=== PATIENT | male | born 1940 | race Caucasian/White ===

== ENCOUNTER 2020-02-10 17:56 | Inpatient (IN) | payer MEDICARE ==
[~2020-02-10 17:56] MED LIST: Heparin 10,000 UNITS/ 10 ML VIAL ONE; Iopamidol 370 76% 100 ML VIAL ONE; Iopamidol 370 76% 50 ML VIAL FS ONE; Tenecteplase 50 MG - STEMI KIT ONE
[2020-02-10 18:17] LABS: #Lymphocytes 1.1 thou/uL (1.20-3.40); #Monocytes 0.5 thou/uL (0.11-0.59); #Neutrophils 4.2 thou/uL (1.40-6.50); %Basophils 0.7 % (0.0-1.0); %Eosinophils 0.4 % (0.0-10.0); %Lymphocytes 18.4 % (21.0-51.0); %Monocytes 8.7 % (0.0-10.0); %Neutrophils 71.8 % (42.0-75.0); Hemoglobin 14.8 g/dL (14.0-18.0); Mean Corpuscular HGB CONC 32.3 g/dL (32.0-36.0); Mean Corpuscular Hemoglobin 30.3 pg (27.0-31.0); Mean Corpuscular Volume 93.8 fL (78.0-98.0); Mean Platelet Volume 9.2 fL (7.4-10.4); Platelet Count 181 thou/uL (130-400); RBC Distribution Width 13.9 % (11.5-14.5); White Blood Cell (WBC) Count 5.8 thou/uL (4.8-10.8)
[2020-02-10 18:23] LABS: INR-International Normal Ratio 1.2; PTT 25.3 sec (22.9-36.1); Prothrombin Time 15.9 sec (12.0-14.7)
--- NOTE | 2020-02-10 18:35 | RAD ---
PORTABLE CHEST: 02/10/20 HISTORY: Chest pain. Heart size is enlarged. Pulmonary vessels are engorged. Bilateral effusions, right larger than left w ith atelectatic changes in the right base. IMPRESSION: Cardiomegaly with mild vascular engorgement. Bilateral pleural effusions, right larger than left with right lower lobe atelectasis versus infiltrate. POS: [facility]
[2020-02-10 18:37] LABS: ALT (SGPT) 42 U/L (8-55); AST (SGOT) 36 U/L (5-34); Albumin 3.4 g/dL (3.4-4.8); Alkaline Phosphatase 121 U/L (40-110); Anion Gap 20 mmol/L (10-20); BUN (Urea Nitrogen) 35 mg/dL (8.4-25.7); CK (CPK) 122 U/L (30-200); Calc. Creatinine Clearance 0 mL/min (70-130); Calcium 8.7 mg/dL (7.8-10.44); Carbon Dioxide 13 mmol/L (23-31); Chloride 110 mmol/L (98-107); Estimated GFR-MDRD 42; Globulin 2.9 g/dL (2.4-3.5); Glucose 171 mg/dL (83-110); Lipase 26 U/L (8-78); Potassium 4.8 mmol/L (3.5-5.1); Protein, Total 6.3 g/dL (5.8-8.1); Sodium 138 mmol/L (136-145)
[2020-02-10] MEDS ORDERED: Furosemide 40 MG/4 ML VIAL ONE (18:42)
[2020-02-10] MEDS ORDERED: Heparin 10,000 UNITS/ 10 ML VIAL ONE (18:51)
[2020-02-10] MEDS ORDERED: Nitroglycerin 50 MG/250 ML BOT 250 ML ONE (18:52)
[2020-02-10] MEDS ORDERED: Adenosine 6 MG/2 ML VIAL ONE (18:58)
[2020-02-10] MEDS ORDERED: Verapamil 5 MG/2 ML VIAL ONE (18:58)
[2020-02-10] MEDS ORDERED: Nitroglycerin 100MG/250ML BOT 250 ML ONE (18:58)
[2020-02-10] MEDS ORDERED: Diltiazem 125 MG/25 ML ONE ×3 (19:00→19:01)
[2020-02-10 19:01] LABS: CKMB 4.4 ng/mL (0-6.6)
[2020-02-10] MEDS ORDERED: Digoxin 0.5 MG/2 ML AMP ONE (19:20)
[2020-02-10] MEDS ORDERED: Aggrastat 12.5 MG/250 ML 250 ML ONE (19:22)
[2020-02-10] MEDS ORDERED: Acetaminophen/Codeine 30-300mg Tablet PO PRN (19:36)
[2020-02-10] MEDS ORDERED: Milk Of Magnesia 30 ML UDCUP PO PRN (19:36)
[2020-02-10] MEDS ORDERED: traMADol HCl 50 MG TAB PO PRN (19:36)
[2020-02-10] MEDS ORDERED: cloNIDine 0.1 MG TAB PO PRN (21:29)
[2020-02-10] MEDS ORDERED: Carvedilol 6.25 MG TAB PO SCH (21:30)
[2020-02-10] MEDS: Atorvastatin Calcium 40 MG TAB PO SCH (21:47)
[2020-02-10] MEDS: Sodium Chloride 0.9% 1,000 ML IV SCH (21:47)
[2020-02-10 22:25] VITALS: BMI 39.2
[2020-02-10] MEDS ORDERED: Temazepam 15 MG CAP PO PRN (22:39)
[2020-02-10] MEDS ORDERED: Labetalol HCl 100 MG/20 ML VIAL SLOW IVP PRN (22:40)
[2020-02-10] MEDS ORDERED: Diltiazem HCl 125 MG, Admixture Fee 1 EACH in Sodium Chloride 0.9% 100 ML IVPB SCH (22:45)
[2020-02-10] MEDS ORDERED: Labetalol HCl 100 MG/20 ML VIAL SLOW IVP SCH (22:45)
[2020-02-10] MEDS ORDERED: Aggrastat 12.5 MG/250 ML 250 ML IVPB SCH (22:45)
[2020-02-10] MEDS: Nitroglycerin 50 MG/250 ML BOT 250 ML IVPB SCH (23:20)
[2020-02-11] MEDS: Sodium Chloride 0.9% 1,000 ML IV SCH (01:04)
[2020-02-11] MEDS: Nitroglycerin 50 MG/250 ML BOT 250 ML IVPB SCH (02:23)
[2020-02-11 03:38] LABS: #Lymphocytes 0.7 thou/uL (1.20-3.40); #Neutrophils 7.7 thou/uL (1.40-6.50); %Basophils 0.2 % (0.0-1.0); %Eosinophils 0.2 % (0.0-10.0); %Lymphocytes 7.8 % (21.0-51.0); %Monocytes 10.6 % (0.0-10.0); %Neutrophils 81.2 % (42.0-75.0); Hemoglobin 12.8 g/dL (14.0-18.0); Mean Corpuscular HGB CONC 32.7 g/dL (32.0-36.0); Mean Corpuscular Hemoglobin 30.5 pg (27.0-31.0); Mean Corpuscular Volume 93.4 fL (78.0-98.0); Mean Platelet Volume 9.7 fL (7.4-10.4); Platelet Count 150 thou/uL (130-400); RBC Distribution Width 13.7 % (11.5-14.5); Red Blood Cell (RBC) Count 4.18 mill/uL (4.70-6.10); White Blood Cell (WBC) Count 9.4 thou/uL (4.8-10.8)
[2020-02-11 03:42] LABS: ALT (SGPT) 54 U/L (8-55); AST (SGOT) 88 U/L (5-34); Albumin 2.9 g/dL (3.4-4.8); Alkaline Phosphatase 97 U/L (40-110); Anion Gap 16 mmol/L (10-20); BUN (Urea Nitrogen) 34 mg/dL (8.4-25.7); Bilirubin, Total 0.8 mg/dL (0.2-1.2); Calc. Creatinine Clearance 72 mL/min (70-130); Calcium 8.2 mg/dL (7.8-10.44); Carbon Dioxide 16 mmol/L (23-31); Chloride 110 mmol/L (98-107); Estimated GFR-MDRD 43; Globulin 2.7 g/dL (2.4-3.5); Glucose 128 mg/dL (83-110); Potassium 4.5 mmol/L (3.5-5.1); Protein, Total 5.6 g/dL (5.8-8.1); Sodium 137 mmol/L (136-145)
[2020-02-11] MEDS ORDERED: Furosemide 40 MG/4 ML VIAL IVP SCH (07:15)
--- NOTE | 2020-02-11 08:41 | CON ---
DATE OF CONSULTATION: 02/10/2020 CHIEF COMPLAINT: Acute DE. HISTORY OF PRESENT ILLNESS: Mr. Jacques is a 79-year-old gentleman, who recently had a lightheaded dizzy episode yesterday. He states he became presyncopal. He did develop chest pain, felt to be mild. EMS was summoned. He was found to have ST-segment elevation noted anteriorly. PAST MEDICAL HISTORY: None. MEDICATIONS: None. ALLERGIES: NONE. REVIEW OF SYSTEMS: A 10-point review of systems is reviewed as above, including significant lower extremity edema over the last several weeks. PHYSICAL EXAMINATION: VITAL SIGNS: Blood pressure 88/60, pulse 38, respirations 20. General: He does appear ashen. Head, Eyes, Ears, Nose and Throat: Sclerae without icterus. Mouth: Moist mucous membranes, normal palate. Neck: No jugular venous distention. Carotid upstroke is brisk. No bruits bilaterally. Lungs: Clear to auscultation. Heart: Irregularly regular and bradycardic. Abdomen: Soft, nontender, nondistended. Extremities: No edema. PERTINENT LABORATORY DATA: Pending. EKG as above. IMPRESSION: Acute myocardial infarction. RECOMMENDATIONS: Mr. Jacques does have ST-segment elevation noted anteriorly, which usually does not correspond with bradydysrhythmias. This would be more likely right coronary artery. Given his current presentation, I would recommend urgent coronary angiography with possible PCI. I discussed procedure in full detail with Mr. Jacques. Risks include, but not limited to the following: , stroke, DE, need for emergency surgery, loss of limb, bleeding, and infection, as well as a reaction to the dye causing kidney failure and needing long-term dialysis. I also discussed the risks of PCI to include all of the above including coronary dissection and perforation in addition to acute stent thrombosis and restenosis. All questions about the procedure were answered. Given the above, the patient agreed to proceed with coronary angiography and possible PCI. All questions were answered. Also discussed drug coated versus nondrug coated stent placement. There were no contraindications to proceed if needed. Further recommendations will be pending the above. We will also recommend likely temporary pacemaker given bradycardia and hypotension. Further recommendations will be pending the above. Job ID: [id number]
[2020-02-11] MEDS: Lisinopril 2.5 MG TAB PO SCH (08:57)
[2020-02-11] MEDS: Carvedilol 6.25 MG TAB PO SCH ×3 (08:58→21:54)
[2020-02-11] MEDS: Aspirin Chewable 81 MG TAB PO SCH (08:58)
[2020-02-11] MEDS: Clopidogrel Bisulfate 75 MG TAB PO SCH (08:58)
[2020-02-11] MEDS ORDERED: Carvedilol 6.25 MG TAB PO SCH (09:00)
--- NOTE | 2020-02-11 09:35 | PRG ---
DATE OF SERVICE: 02/11/2020 SUBJECTIVE: Mr. Jacques is doing much better. Blood pressure and heart rate are more stable. I was able to wean off his IV nitroglycerin overnight. He was on up to . His blood pressure is more stable. He also was able to decrease his Cardizem from . He has no current symptoms and no longer looks ashen. OBJECTIVE: VITAL SIGNS: Blood pressure 137/70, pulse 80, and respirations 20. LUNGS: Clear to auscultation. HEART: Irregularly regular. ABDOMEN: Soft, nontender, nondistended. Large ventral hernia present. EXTREMITIES: 3+ pitting edema. IMPRESSION: 1. Acute myocardial infarction. 2. Atrial fibrillation. 3. Obesity. 4. Ventral hernia. RECOMMENDATIONS: 1. Remove the temporary pacemaker. 2. Increase Coreg to 6.25 one p.o. t.i.d. 3. Continue to titrate down Cardizem. 4. Check echo. 5. Continue aspirin and Plavix in addition to beta-yudith therapy. 6. Continue low-dose RAINA inhibitor therapy. Job ID: [id number]
[2020-02-11 09:40] LABS: CKMB 122.6 ng/mL (0-6.6); Troponin I 12.896 ng/mL (< 0.028)
[2020-02-11 17:22] LABS: SARS-CoV-2 MS2 Positive; SARS-CoV-2 N Gene Negative; SARS-CoV-2 S Gene Negative; SARS-CoV-2 by NAA Not Detected (NotDetected); SARS-CoV-2 orf1ab Negative
[2020-02-11] MEDS ORDERED: FLU VACC QS2020-21(65YR UP)/PF 240 MCG/0.7 ML SYRINGE IM ONE (21:00)
[2020-02-11] MEDS: Atorvastatin Calcium 40 MG TAB PO SCH (21:55)
[2020-02-12] MEDS: Lisinopril 2.5 MG TAB PO SCH (10:19)
[2020-02-12] MEDS: Aspirin Chewable 81 MG TAB PO SCH (10:20)
[2020-02-12] MEDS: Clopidogrel Bisulfate 75 MG TAB PO SCH (10:20)
[2020-02-12] MEDS: Apixaban 5 MG TAB PO SCH ×2 (10:20→21:03)
[2020-02-12] MEDS: Carvedilol 6.25 MG TAB PO SCH ×3 (10:20→21:02)
--- NOTE | 2020-02-12 11:16 | EKG ---
Test Reason : Blood Pressure : / mmHG Vent. Rate : 041 BPM Atrial Rate : 300 BPM P-R Int : 000 ms QRS Dur : 114 ms QT Int : 552 ms P-R-T Axes : 000 081 223 degrees QTc Int : 455 ms Atrial fibrillation with slow ventricular response Abnormal ECG ST elevation-RI Confirmed by CHANDA MORENO ([id number]), digital editor DIOGO WICK ([id number]) on 02/12/2020 11:16:39 AM Referred By: Confirmed By:CHANDA MORENO
[2020-02-12] MEDS ORDERED: Furosemide 40 MG/4 ML VIAL SLOW IVP SCH ×2 (11:45→21:30)
[2020-02-12] MEDS: Atorvastatin Calcium 40 MG TAB PO SCH (21:02)
[2020-02-12] MEDS ORDERED: Nitroglycerin 2% Ointment 1 INCH/1 GM Packet TOP SCH (21:30)
[2020-02-13] MEDS: Lisinopril 2.5 MG TAB PO SCH (07:49)
[2020-02-13] MEDS: Nitroglycerin 2% Ointment 1 INCH/1 GM Packet TOP SCH ×2 (07:51→20:21)
[2020-02-13] MEDS: Aspirin Chewable 81 MG TAB PO SCH (07:51)
[2020-02-13] MEDS: Apixaban 5 MG TAB PO SCH ×2 (07:52→20:20)
[2020-02-13] MEDS: Carvedilol 6.25 MG TAB PO SCH ×2 (07:52→16:22)
[2020-02-13] MEDS: Clopidogrel Bisulfate 75 MG TAB PO SCH (07:52)
[2020-02-13] MEDS ORDERED: Enoxaparin Sodium 80 MG/0.8 ML SYRINGE SC SCH (09:00)
[2020-02-13 10:33] LABS: #Lymphocytes 0.9 thou/uL (1.20-3.40); #Monocytes 0.9 thou/uL (0.11-0.59); #Neutrophils 11.1 thou/uL (1.40-6.50); %Basophils 0.1 % (0.0-1.0); %Eosinophils 0.3 % (0.0-10.0); %Lymphocytes 6.7 % (21.0-51.0); %Monocytes 7.3 % (0.0-10.0); %Neutrophils 85.6 % (42.0-75.0); Hemoglobin 14.2 g/dL (14.0-18.0); Mean Corpuscular Hemoglobin 30.7 pg (27.0-31.0); Mean Corpuscular Volume 95.8 fL (78.0-98.0); Mean Platelet Volume 9.3 fL (7.4-10.4); Platelet Count 133 thou/uL (130-400); RBC Distribution Width 13.8 % (11.5-14.5); Red Blood Cell (RBC) Count 4.62 mill/uL (4.70-6.10); White Blood Cell (WBC) Count 12.9 thou/uL (4.8-10.8)
[2020-02-13 10:50] LABS: Anion Gap 15 mmol/L (10-20); BUN (Urea Nitrogen) 34 mg/dL (8.4-25.7); Calc. Creatinine Clearance 80 mL/min (70-130); Calcium 8.5 mg/dL (7.8-10.44); Carbon Dioxide 21 mmol/L (23-31); Chloride 106 mmol/L (98-107); Estimated GFR-MDRD 50; Glucose 130 mg/dL (83-110); Potassium 4.6 mmol/L (3.5-5.1); Sodium 137 mmol/L (136-145)
[2020-02-13] MEDS: Atorvastatin Calcium 40 MG TAB PO SCH (20:20)
[2020-02-14] MEDS ORDERED: Furosemide 20 MG/2 ML VIAL SLOW IVP SCH (09:00)
[2020-02-14] MEDS: Aspirin Chewable 81 MG TAB PO SCH (09:52)
[2020-02-14] MEDS: Nitroglycerin 2% Ointment 1 INCH/1 GM Packet TOP SCH ×2 (09:52→21:42)
[2020-02-14] MEDS: Clopidogrel Bisulfate 75 MG TAB PO SCH (09:53)
[2020-02-14] MEDS: Lisinopril 2.5 MG TAB PO SCH (09:53)
[2020-02-14] MEDS: Apixaban 5 MG TAB PO SCH ×2 (09:53→21:42)
[2020-02-14] MEDS: Carvedilol 6.25 MG TAB PO SCH ×2 (09:53→17:30)
[2020-02-14] MEDS: Atorvastatin Calcium 40 MG TAB PO SCH (21:42)
[2020-02-15] MEDS: Potassium Chloride 8 MEQ TAB PO SCH (08:30)
[2020-02-15] MEDS: Clopidogrel Bisulfate 75 MG TAB PO SCH (08:30)
[2020-02-15] MEDS: Furosemide 40 MG TAB PO SCH (08:31)
[2020-02-15] MEDS: Carvedilol 6.25 MG TAB PO SCH ×2 (08:31→16:37)
[2020-02-15] MEDS: Apixaban 5 MG TAB PO SCH ×2 (08:32→20:09)
[2020-02-15] MEDS: Lisinopril 2.5 MG TAB PO SCH (08:32)
[2020-02-15] MEDS: Aspirin Chewable 81 MG TAB PO SCH (08:32)
[2020-02-15] MEDS ORDERED: Furosemide 40 MG/4 ML VIAL IVP SCH (09:30)
--- NOTE | 2020-02-15 10:40 | PDOC.FMACP ---
Advance Care Planning - Problem (1) STEMI (ST elevation myocardial infarction) Status: Acute (2) Palliative care encounter Status: Acute Code(s): Z51.5 - ENCOUNTER FOR PALLIATIVE CARE - Note Participants: patient, palliative care Summary: Palliative Care discussed Advanced Care Planning, opportunity to decline. The diagnosis, prognosis and goals of care were discussed. Appropriate forms and documentation to accomplish the goals of care were discussed. All questions were answered. Mr Jacques elected to complete a MPOA, information provided in relation to Directive to Physician. Confirmed he wishes to remain with full resuscitation measures. The Palliative Care Team will be engaged to assist with completion of any outstanding forms that are needed. Please also refer to Palliative Care team notes in note section. Palliative Care will sign off as Directives addressed, if we can be of assistance in the future for Goal of Care, complex decision making, disease education or symptom management please re consult our team. Time Spent (mins): 15
[2020-02-15] MEDS: Atorvastatin Calcium 40 MG TAB PO SCH (20:08)
--- NOTE | 2020-02-16 08:02 | PRG ---
DATE OF SERVICE: 02/15/2020 SUBJECTIVE: Mr. Jacques is doing well, no current complaints. His mobility has been limited. He states he has had some ambulation, but not much. OBJECTIVE: VITAL SIGNS: Blood pressure 141/95, pulse 101, and temperature 98.4. LUNGS: Clear to auscultation. HEART: Irregularly regular. ABDOMEN: Soft, nontender, and nondistended. EXTREMITIES: No edema. PERTINENT LABORATORY DATA: Hemoglobin 14.2, hematocrit 44.3. ASSESSMENT AND PLAN: 1. Acute myocardial infarction. 2. Atrial fibrillation, newly diagnosed. 3. Hyperglycemia. RECOMMENDATIONS: 1. Switch IV Lasix to p.o. Lasix. 2. Continue beta-yudith therapy and RAINA inhibitor therapy. 3. Continue aspirin in addition to isosorbide. 4. Discontinue lisinopril. 5. Check Hb A1c and add Jardiance if HbA1c elevated. 6. Transfer to rehab when bed available. Job ID: [id number]
[2020-02-16 08:36] LABS: Hemoglobin A1c 5.8 % (4.0-6.0)
[2020-02-16] MEDS: Aspirin Chewable 81 MG TAB PO SCH (09:31)
[2020-02-16] MEDS: Carvedilol 6.25 MG TAB PO SCH ×2 (09:32→17:23)
[2020-02-16] MEDS: Apixaban 5 MG TAB PO SCH (09:33)
[2020-02-16] MEDS: Clopidogrel Bisulfate 75 MG TAB PO SCH (09:33)
[2020-02-16] MEDS: Lisinopril 2.5 MG TAB PO SCH (09:33)
[2020-02-16] MEDS: Potassium Chloride 8 MEQ TAB PO SCH (09:34)
[2020-02-16] MEDS: Furosemide 40 MG TAB PO SCH (09:34)
[2020-02-16 12:55] LABS: Anion Gap 12 mmol/L (10-20); BUN (Urea Nitrogen) 44 mg/dL (8.4-25.7); Calc. Creatinine Clearance 81 mL/min (70-130); Calcium 8.5 mg/dL (7.8-10.44); Carbon Dioxide 24 mmol/L (23-31); Chloride 104 mmol/L (98-107); Estimated GFR-MDRD 51; Glucose 132 mg/dL (83-110); Potassium 4.5 mmol/L (3.5-5.1); Sodium 135 mmol/L (136-145)
[2020-02-16 16:33] VITALS: BP 125/71; TEMP 97.7
[2020-02-17] MEDS ORDERED: Losartan 25 MG TAB PO SCH (09:00)
--- NOTE | 2020-02-18 07:18 | PQF ---
CLINICAL DOCUMENTATION CLARIFICATION FORM: Dear : Stalin Parish MD Date / Time: 02/18/2020 Please exercise your independent, professional judgment in responding to the clarification form. Clinical indicators are provided on the bottom of this form for your review Please check appropriate box(es): to clarify the acquity of systolic heart failure SYSTOLIC HEART FAILURE: [ ] Acute [ ] Acute on Chronic [ ] Chronic [ ] Other diagnosis (Please specify if any) [ ] Unable to determine In addition, please specify: Present on Admission (POA): [ ] Yes [ ] No [ ] Unable to determine Physician Signature: Date/Time: For continuity of documentation, please document condition throughout progress notes and discharge summary. Thank You. To be completed by CDI/Coding staff for physician review: Present Clinical Indicators - Signs / Symptoms / Labs Results and Location in Medical Record [ x ] Ejection Fraction = 35% Progress notes on 02/12 [ x] Systolic HF Progress notes on 02/12 [ ] Peripheral edema [ ] Elevated BNP [ x ] Appears volume overload Progress notes on 02/11 [ ] Orthopnea / SOB / dyspnea [ ] Pleural effusion / pulmonary edema [ ] CXR results [ ] Arrhythmia--tachycardia Present Risk Factors Results and Location in Medical Record [ ] History of CAD/ischemic heart disease [ ] CKD Hypertension [x] Acute myocardial infarction Consult on 02/10 Present Treatments Results and Location in Medical Record [ x ] Add additional dose IVP lasiz last pm for exp wheezing Progress notes on 02/12 [x ] Lasix 40 mg Medication on 02/09 [x ] Lasix 40 mg IV Medication on 02/10 [ ] Oxygen [ ] AICD [ ] Cardiology Consult CDS/Plastic Panel Installer Signature: AAS Phone #: Date/Time: 02/18/2020 This is a permanent part of the Medical Record [facility]
--- NOTE | 2020-02-18 13:18 | EKG ---
Test Reason : Blood Pressure : / mmHG Vent. Rate : 081 BPM Atrial Rate : 100 BPM P-R Int : 000 ms QRS Dur : 106 ms QT Int : 388 ms P-R-T Axes : 000 050 235 degrees QTc Int : 450 ms Atrial fibrillation Abnormal ECG When compared with ECG of 10-FEB-2020 18:00, (Unconfirmed) Vent. rate has increased BY [address] no longer depressed in Lateral leads Confirmed by DR. Gabriella NUNEZ ([id number]) on 02/18/2020 1:17:52 PM Referred By: ELKIN Confirmed By:DR. Gabriella NUNEZ
== END 2020-02-16 18:20 | DRG 247 ==
LOC: ERS 17:56 → CCL 18:21 → CCU 19:36 → 2NO 02-11 15:08
PROVIDERS: ADMIT Internal Medicine Cardiovascular Disease; ATTEND Internal Medicine Cardiovascular Disease
PROC: B2111ZZ Fluoroscopy of Multiple Coronary Arteries using Low Osmolar Contrast (ICD-10-PCS; principal; 2020-02-10)
PROC: 027035Z Dilation of Coronary Artery, One Artery with Two Drug-eluting Intraluminal Devices, Percutaneous Approach (ICD-10-PCS; 2020-02-10)
PROC: 02C03ZZ Extirpation of Matter from Coronary Artery, One Artery, Percutaneous Approach (ICD-10-PCS; 2020-02-10)
PROC: B2151ZZ Fluoroscopy of Left Heart using Low Osmolar Contrast (ICD-10-PCS; 2020-02-10)
PROC: 4A023N7 Measurement of Cardiac Sampling and Pressure, Left Heart, Percutaneous Approach (ICD-10-PCS; 2020-02-10)
DX: I21.09 ST elevation (STEMI) myocardial infarction involving other coronary artery of anterior wall (principal); I50.22 Chronic systolic (congestive) heart failure; I48.91 Unspecified atrial fibrillation; Z51.5 Encounter for palliative care; Z68.38 Body mass index [BMI] 38.0-38.9, adult; E66.9 Obesity, unspecified; K43.9 Ventral hernia without obstruction or gangrene; R73.9 Hyperglycemia, unspecified; R00.1 Bradycardia, unspecified; Z20.828 Contact with and (suspected) exposure to other viral communicable diseases
CPT/HCPCS: 33210; 36415; 71045; 76942; 80048; 80053; 82550; 82553; 83036; 83690; 84484; 85025; 85347; 85610; 85730; 86850; 86900; 86901; 87635; 90471; 90662; 90732; 92941; 92977; 93005; 93010; 93306; 93458; 93798; 96374; 97139; C1874; C9606; G0008; G0009; J0153; J1160; J1644; J1940; J3101; J3246; J3490; Q9967; U0003

== ENCOUNTER 2020-04-04 20:01 | Inpatient (IN) | payer MEDICARE ==
[2020-04-04 20:27] LABS: #Eosinphils 0.1 thou/uL (0.0-0.7); #Lymphocytes 1.4 thou/uL (1.20-3.40); #Monocytes 0.4 thou/uL (0.11-0.59); #Neutrophils 5.3 thou/uL (1.40-6.50); %Basophils 0.3 % (0.0-1.0); %Eosinophils 0.9 % (0.0-10.0); %Lymphocytes 19.8 % (21.0-51.0); %Monocytes 4.9 % (0.0-10.0); %Neutrophils 74.1 % (42.0-75.0); Hemoglobin 7.8 g/dL (14.0-18.0); Mean Corpuscular HGB CONC 32.9 g/dL (32.0-36.0); Mean Corpuscular Hemoglobin 31.7 pg (27.0-31.0); Mean Corpuscular Volume 96.2 fL (78.0-98.0); Mean Platelet Volume 9.1 fL (7.4-10.4); Platelet Count 137 thou/uL (130-400); RBC Distribution Width 16.2 % (11.5-14.5); Red Blood Cell (RBC) Count 2.47 mill/uL (4.70-6.10); White Blood Cell (WBC) Count 7.1 thou/uL (4.8-10.8)
[2020-04-04 20:41] LABS: INR-International Normal Ratio 1.4; PTT 40.6 sec (22.9-36.1); Prothrombin Time 17.1 sec (12.0-14.7)
[2020-04-04] MEDS ORDERED: Ondansetron ODT 4 MG TAB PO PRN (20:42)
[2020-04-04] MEDS ORDERED: Dextrose 50% Abboject 50 ML SYRINGE SLOW IVP PRN (20:42)
[2020-04-04] MEDS ORDERED: Dextrose 5% in Water 1,000 ML IV PRN (20:42)
[2020-04-04 20:44] LABS: ALT (SGPT) 25 U/L (8-55); AST (SGOT) 22 U/L (5-34); Albumin 2.3 g/dL (3.4-4.8); Alkaline Phosphatase 171 U/L (40-110); Anion Gap 15 mmol/L (10-20); BUN (Urea Nitrogen) 52 mg/dL (8.4-25.7); Calc. Creatinine Clearance 0 mL/min (70-130); Calcium 7.7 mg/dL (7.8-10.44); Carbon Dioxide 26 mmol/L (23-31); Chloride 98 mmol/L (98-107); Glucose 164 mg/dL (83-110); Potassium 3.3 mmol/L (3.5-5.1); Protein, Total 5.3 g/dL (5.8-8.1); Sodium 136 mmol/L (136-145)
[2020-04-04] MEDS ORDERED: traMADol HCl 50 MG TAB PO PRN (20:48)
--- NOTE | 2020-04-04 20:50 | RAD ---
XR Chest 1 View Portable History: Fall Comparison: Radiograph February 10, 2020 Findings: Moderate layering right pleural effusion. Right middle lobe airspace opacity. Pulmonary art eries are enlarged. Heart size is enlarged. No pneumothorax. No acute displaced rib fracture. Impression: 1. Slight interval size decrease right layering pleural effusion. 2. Markedly cardiomegaly and pulmonary hypertension. 3. Right middle lobe and right lower lobe airspace opacity may reflect layering pleural fluid or cons olidation.
--- NOTE | 2020-04-04 20:55 | CT ---
CT Cervical Spine WO Con History: Trauma Comparison: None. Findings: The odontoid process is intact. The occipital condyles are intact. No acute traumatic facet joint widening. No acute fracture or malalignment of the cervical spine. Debris within the nasal cavity and nasopharynx. Gas within the perivertebral vessels and internal jugular veins. High-grade c arotid artery calcifications. No transverse process fracture. No spinous process fracture. Impression: No acute fracture or malalignment of the cervical spine. Dr. Lopez notified of findings via telephone at 8:50 PM
--- NOTE | 2020-04-04 20:57 | CT ---
CT OF BRAIN PERFORMED WITHOUT CONTRAST ENHANCEMENT: 04/04/20 HISTORY: Fall with head injury. Currently on blood thinners. There is some generalized ventricular and sulcal prominence. There is no signs of intracerebral hemor rhage or extra-axial fluid collections. Frontal scalp hematoma is present. The mastoid air cells are clear. Air fluid level of high attenuation is seen in the left maxillary sinus. Findings would be tyra picious for a floor fracture. Subtle irregularity also seen to the lateral wall of the left maxillary sinus. Zygomatic arch appears intact. IMPRESSION: 1. No acute intracranial abnormalities. 2. Blood within the left maxillary sinus. The possibility of an occult orbital floor fracture sh ould be considered. CT of facial bones would be helpful in further assessment. Slight irregularity to the lateral wall of the left maxillary sinus, suspicious for a subtle fracture. 3. Findings telephoned to Dr. Lopez at 2047 hours. POS: [facility] [place]
[2020-04-04] MEDS ORDERED: Tranexamic Acid 1,000 MG/10 ML VIAL ONE (20:59)
--- NOTE | 2020-04-04 21:03 | CT ---
CT OF FACIAL BONES PERFORMED WITHOUT CONTRAST ENHANCEMENT: 04/04/20 HISTORY: Facial trauma Slight asymmetry to the left side of the nasal bone which may represent a small fracture. Appears to be some soft tissue swelling in this region. There is mucosal change within the maxillary sinuses and an air fluid level seen within the left maxillary sinus which is of higher attenuation suggesting bl ood. Subtle irregularity to the posterior aspect of the lateral wall of the left maxillary sinus may represent a subtle nondisplaced fracture. Accessory maxillary ostia present but there is some irregul arity to the medial wall of the left maxillary sinus which would suggest a fracture in this region. T here is no evidence of any orbital floor fracture. Pterygoid processes appear intact. The mandible is intact and condyles are in normal position. There is some air in the soft tissues near the left paro tid. This may just represent some air within a venous structure. I do not appreciate a definite lacer ation in this area. IMPRESSION: 1. Subtle nondisplaced fracture of the left side of the nasal bone anteriorly. Also subtle irreg ularity to the lateral and medial valladares of the left maxillary sinus suspicious for nondisplaced fract ures. No orbital floor fracture seen. There is blood within the left maxillary sinus. 2. These findings were telephoned to Dr. Lopez at 2053 hours. POS: [facility]
[2020-04-04] MEDS ORDERED: Lidocaine 1% (PF) 30 ML VIAL ONE (21:18)
[2020-04-04] MEDS ORDERED: Calcium Chloride 1 GM/10 ML Abboject SYRINGE ONE (21:55)
[2020-04-04] MEDS ORDERED: Ampicillin/Sulbactam 3 GM in Sodium Chloride 0.9% 100 ML IVPB SCH (22:45)
[2020-04-04] MEDS ORDERED: Electrolyte Replacement Protocol 1 EACH FS SCH (23:00)
--- NOTE | 2020-04-04 23:13 | PDOC.BPN ---
- Brief Progress Note Encounter Date: 04/04/20 Encounter Time: 23:09 Transient responding: BP is labile. Bleeding has been controlled, mental status and skin appear improved. GCS remains 15. No pain. ON 4th unit of PRBC, 2nd plasma. BP now 105 systolic but will dip to 80's at times. HR 90's afib. Will add: -fibrinogen -repeat h/h -mag and phos level -check troponin and CK reflex -obtain UA -Calcium has been given -Hydrocortisone given Doubt other injuries, but will get CT chest/abd/pelvis for further eval. Soft abd, CXR reviewed (will better define the RLL opacity too). Non-contrast 2/2 RABIA UOP is appropriate. On warmer and changed blood to warmed as temp was 94.7 prior to starting 4th unit. Will change to critical care unit I still think that with our external bleeding stopped we should catch up. Verbally consented for central line if needed. Consult OMFS (routine in AM) d/w Dr. Antonio. d/w ER staff/
[2020-04-04] MEDS ORDERED: Hydrocortisone Sod Succ/PF 250 mg/2 ml Vial SLOW IVP SCH (23:15)
[2020-04-04 23:22] LABS: Lactic Acid 2.9 mmol/L (0.5-2.2)
[2020-04-04 23:23] LABS: Hemoglobin 8.3 g/dL (14.0-18.0)
[2020-04-04] MEDS ORDERED: Hydrocortisone Sod Succ/PF 100 mg/2 ml Vial IVP SCH (23:30)
[2020-04-04 23:33] LABS: Phosphorus 3.4 mg/dL (2.3-4.7)
[2020-04-04 23:59] LABS: CKMB 4.7 ng/mL (0-6.6)
--- NOTE | 2020-04-05 00:05 | OP ---
DATE OF PROCEDURE: 04/04/2020 PROCEDURES PERFORMED: 1. Wound/complex laceration repair x2 of the face and vermilion border. 2. Rhino Rocket and epistaxis control. 3. Infraorbital Nerve block of the Left. INDICATION: 1. Hemorrhagic shock. 2. Facial lacerations x2. 3. Epistaxis with open fracture. Consent was verbal. DESCRIPTION OF PROCEDURE: The patient was prepped and draped in usual fashion. Hand hygiene was completed, did an infraorbital nerve block of the right side with good anesthesia 1% lidocaine a total of 1.5 mL instilled with good anesthesia. No complications. The area was thoroughly irrigated with jet irrigation. The patient has a stellate type laceration that does cross the vermilion border and then is ivyjwye-vab-elwrvld into the lip with a large defect. He also has a second laceration that is just superior to this above the right. That is a jagged laceration with active bleeding prior to TXA topically. The first suture was 5- 0 Vicryl subcuticular to approximate the soft tissues of the lip, one suture was placed, and to approximate the vermilion border, I placed one 6-0 Prolene suture across this and it was difficult to get a great approximation across the vermilion border given the multiple stellate lacerations about this cut, a total of I believe 5 simple interrupted sutures across this laceration, 3 being on the external portion and 2 loosely covering the internal portion, so the patient would not feel a defect with his tongue with good wound margins. Next, my attention turned to the more superior laceration, did have a large skin defect, again thoroughly irrigated. No foreign bodies were noted. This was closed with an additional five simple interrupted 6-0 Prolene sutures with good margins and good bleeding control. Foreign body 0. Bleeding total during the procedure, less than 5 mL. Good wound margins. Complications, none. Tolerated the procedure well. PROCEDURE #2: Epistaxis control. This was completed with an anterior packed Rhino Rocket. The Rhino Rocket was identify. Consent was verbal. It was soaked in 5 mL of TXA. It was then placed into the left naris. The balloon was inflated until it was seated. This was secured in place and bleeding was controlled. Immediate complications none. The patient tolerated the procedure well. Job ID: [id number] [facility]
--- NOTE | 2020-04-05 00:13 | CT ---
CT Chest Abd Pelvis WO Con History: Fall Comparison: None. Findings: Large right layering pleural effusion not measuring hemorrhagic high density. Small to mode rate left layering pleural effusion. Large hematoma in the potential space between the serratus musculature and the latissimus muscle on t he left measuring 5.6 cm in AP dimension with a transverse dimension of 3.5 cm in a craniocaudal dimension of approximately 13 cm. Mild compressive atelectasis right middle lobe and right lower lobe. No pneumothorax. Small volume pe ricardial fluid. Aortoiliac contour is nonaneurysmal. Moderate diverticular disease sigmoid colon. No active inflammat ion. Large small bowel containing infraumbilical hernia with a large 6.2 cm neck. Small superficial soft tissue contusion along the anterior left lower quadrant adjacent to the iliac crests. Small right anterior thigh superficial soft tissue contusion. Likely third spacing of fluid versus less likely contusion along the right mini abdominal wall outside the field of view. No hepatic or splenic laceration. No renal laceration or hemorrhage. No large volume peritoneal fluid . No retroperitoneal hemorrhage. Thoracic spine diffuse idiopathic skeletal hyperostosis. No acute thoracic spine fracture. No sternum or manubrium fracture. No acute displaced right rib fracture. No acute displaced left rib fracture. No acute pelvic fracture. Impression: 1. Moderate-large hematoma in the potential space between the left serratus and latissimus muscles me asuring 5.6 x 3.5 x 13 cm. 2. Nonhemorrhagic large right layering pleural effusion with small left layering nonhemorrhagic pleur al effusion. 3. No free intraperitoneal hemorrhage nor significant retroperitoneal hemorrhage. 4. Large fat and small bowel containing infraumbilical hernia. 5. Superficial soft tissue contusions along the left lower lateral abdominal wall at the iliac crests and possibly along the right flank although out of field of view. 6. Moderate bilateral paraspinal muscle atrophy. 7. Small soft tissue contusion of the right anterior chest wall with a large volume hematoma or under lying rib fracture.
[2020-04-05] MEDS ORDERED: Magnesium 2 GM/50 ML 2 GM in Premix Bag 1 BAG IVPB SCH (00:30)
[2020-04-05 00:53] LABS: SARS-CoV-2 NAA Rapid Test Not Detected (NotDetected)
[2020-04-05] MEDS ORDERED: Potassium Chloride 40 MEQ in Sodium Chloride 0.9% 250 ML 250 ML IVPB SCH (01:00)
[2020-04-05 02:34] LABS: Bacteria/HPF 3+ HPF (None Seen); Bilirubin Negative (Negative); Blood, Urine 2+ (Negative); Clarity Extra Turbid (Clear); Glucose, Urine (Dipstick) Normal (Negative); Ketone, Urine Negative (Negative); Leukocyte 500 Leu/uL (Negative); Nitrite Negative (Negative); Protein, Urine (Dipstick) 20 mg/dL (Neg-Trace); RBC/HPF 21-50 HPF (0-3); Specific Gravity, Urine 1.012 (1.002-1.036); Squamous Epithelial None Seen HPF (0-3); Urobilinogen Normal mg/dL (Less than 2); WBC/HPF Greater than 50 HPF (0-3); pH, Urine 5.5 (5.0-9.0)
[2020-04-05] MEDS: Acetaminophen 325 MG TAB PO SCH ×5 (02:47→23:15)
[2020-04-05] MEDS: traMADol HCl 50 MG TAB PO SCH ×5 (02:52→23:20)
[2020-04-05] MEDS ORDERED: Pharmacy to Dose UNASYN IVPB PRN (03:53)
--- NOTE | 2020-04-05 05:15 | HP ---
CRITICAL CARE/TRAUMA ATTENDING: Dr. Antonio. PCP: Dr. Larson in [place]. EXCHANGE TELLER: Dr. Parish. REASON FOR CONSULT/ADMISSION: Level 1 trauma activation fall with hypotension. HISTORY OF PRESENT ILLNESS: Mr. Jacques is an 80-year-old male with a recent past medical history significant for STEMI with RCA stent placed in January [address] Parish here after syncope and dizziness. He tolerated the procedure well. He was placed on Plavix and aspirin as well as Eliquis. He was noted to have persistent anemia. He was actually taken off the Eliquis 2 weeks ago. The patient also had an echo post procedure showed EF of 25% to 30%. He has persistent lower extremity edema and is on Lasix. The patient was in his usual state of health. States that he rolled over to get out of bed today and fell, striking his face. He was found down on the floor in a very large pool of blood according to the family. Blood pressure was as low as 60 systolic on the scene. [facility] was called. He was given 1 unit of PRBCs and transferred to our facility. In the emergency department, level 1 activation was called. He was given 1 unit of PRBCs with massive transfusion protocol. The trauma attending was at the bedside. This was stopped as the patient's blood pressure normalized. He did have trauma noted about the face and a laceration to the right side of his lip and blood about his head. The patient was alert and oriented with a GCS of 15. He did not complain of any type of pain. He had no chest pain. No shortness of air. No recent illness. No cough. No nausea, vomiting, or diarrhea. The patient is noted to be pale. We have been asked to admit the patient to the hospital. I evaluated the patient in the emergency department. He was a transient responder with blood products for hypotension. I have ordered an additional 3rd unit of PRBCs as well as platelets. I have discussed with pharmacy as his last dose of Eliquis was over 2 weeks ago. There is no indication for the Kcentra that they had at the bedside. I did order platelets and then they brought a small pack. I am ordering a Jumbo pack of platelets. We need to be mindful of the patient's volume status. He will respond briefly with a MAP just over 65. Of note, on his last hospital admission noted blood pressures that were in the 100 systolic range at times too and his family states his usual BP is around 100 systolic. He has been in AFib, generally rate controlled, rate anywhere between 80s and 110. No shortness of air. Saturating 100% on room air. ABC's have been intact. REVIEW OF SYSTEMS: Pertinent positive and negative per HPI, otherwise regarded as negative. PAST MEDICAL HISTORY: Significant for coronary artery disease, heart failure with reduced EF, STEMI status post RCA stent placement in 01/2020. PAST SURGICAL HISTORY: Denies. MEDICATIONS: 1. Potassium. 2. Milk of magnesia as needed. 3. Losartan 25 mg. 4. Isosorbide 30 mg. 5. Lasix 40 mg daily. 6. Plavix 75 mg daily. 7. Coreg 3.125 mg b.i.d. 8. Atorvastatin 40 mg daily. 9. Aspirin 81 mg daily. 10. Eliquis 5 mg b.i.d. that was stopped 2 weeks ago. ALLERGIES: NO KNOWN ALLERGIES. SOCIAL HISTORY: The patient is currently . His is in the hospital for hypoglycemia. He has a daughter at the bedside. 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 He formerly socially would drink alcohol. Lifelong nonsmoker, but he did have heavy secondhand smoke. FAMILY HISTORY: Noncontributory. PHYSICAL EXAMINATION: VITAL SIGNS: Temperature, please see the MAR, he is currently on a warming blanket. Blood pressure is a MAP of 68, heart rate is 90, respiratory rate is 18. He is saturating 100% on room air. GENERAL: An 80-year-old patient with blood noted about the face and he is pale appearing in the trauma bay. HEENT: Normocephalic. Trachea is midline. He has no JVD appreciated. He does have trauma about the face. He has bruising to the right side of the face. His extraocular movements are intact. His sclera are clear yet. He has pale conjunctiva. He has blood in bilateral nares. I do not see a septal hematoma. He does have blood pooled with clot formation in the left naris. He has fractured tooth on the right upper x2. He has a laceration that is through and through across the vermilion border on the right. He also has a laceration just above the vermilion border on the right that is actively bleeding. He has dried blood about his face. His TMs are clear bilaterally. He does have cerumen impaction noted on the right. There is no blood in the canals. I do not see any trauma about the top of his head or skull. He has no crepitus. NECK: He has no pain to palpation. RESPIRATORY: Equal rise and fall. Bilateral breath sounds. Clear to auscultation in upper and lower lobes bilaterally. CARDIOVASCULAR: He has an irregularly irregular rhythm. Currently, he is rate controlled in the 90s. He has strong pulses. He has bipedal edema to the level of the knees that is 4+ pitting with some weeping noted. He does have warm extremities and able to move these. ABDOMEN: He has a large hernia that is reducible. No pain. No masses, guarding, or rigidity. No peritoneal signs. PELVIS: Stable. MUSCULOSKELETAL: He moves all of his extremities well. He has dried blood noted about his hands. He has strong pulses. SKIN: Pale, dry. NEURO: The patient is alert, oriented to person, place, time, and event with a GCS of 15. PSYCH: Normal mood and affect. DIAGNOSTIC CRITERIA: Today, he has a chest x-ray that shows cardiomegaly with a right-sided pleural effusion on my read. He also has a consolidation in the right lower mid lobe. I do not appreciate this from his prior exam. He has a CT brain that shows no acute intracranial abnormalities. His CT cervical spine was negative for acute fracture or malalignment. He had a CT of facial bones that demonstrated a nondisplaced fracture of the left side of the nasal bone anteriorly, septal irregularity to the lateral and medial valladares of the left maxillary sinus suspicious for nondisplaced fractures, no orbital floor fracture is seen. LABORATORY DATA: That has returned thus far, white blood cell count is 7.1, platelets are 137, hemoglobin and hematocrit are 7.8 and 23.7 respectively. His INR is 1.4, PT is 17.1, and PTT of 40.6. His sodium is 136, potassium is 3.3, chloride is 98, CO2 is 26, BUN is 52, creatinine is 2.14 with a discharge creatinine previously around 1.24, glucose is 164, lactate was 3.5, calcium is 7.7, alkaline phosphatase is 171. ASSESSMENT: 1. Hemorrhagic shock. 2. Fall. 3. Facial lacerations. 4. Acute blood loss anemia. 5. Acute on chronic anemia. 6. Left nasal fracture, possibly maxillary sinus fracture. 7. Hypokalemia. 8. History of heart failure with reduced ejection fraction. 9. History of coronary artery disease. 10. Acute kidney injury. MEDICAL DECISION MAKING: This is a trauma patient, who ultimately is on dual anti-platelet, currently with found down with a large pool of blood and hypotensive, believed to be hemorrhagic shock from external bleeding. There are no signs of internal bleeding or solid organ injury as well as any other intracranial abnormalities. The patient was actively bleeding upon my arrival. Although he was a transient responder, we have ordered more blood products. I have urgently sewn up the lip laceration. He also had blood coming out of the left naris. I did place topical tPA over the laceration initially to gain hemostasis and control. The patient has also been ordered 1 g of calcium. I do feel like we need to reverse his antiplatelets because he has mild thrombocytopenia at 136 in the setting of dual antiplatelets and massive hemorrhage. I have also discussed with the pharmacy and there is no indication for Kcentra given his last dose was well over 72 hours ago even with his reduced renal function. The patient was bleeding from his nose after exam with facial fractures. I have placed a left Rhino Rocket soaked with TXA and so far I believe that we have achieved hemostasis and I hope that we will get caught up with blood products. We need to be very cautious with the patient's fluid status. However, I do not want to worsen his RABIA by any prolonged hypotensive episodes. At this point, the patient has received: 1. 3 units PRBC with 4th ordered. 2. 1 unit of platelets. 3. 1 g calcium. 4. Topical TXA. 5. 1 L fluid. We will provide Tdap. We will cover with antibiotics given potentially open fracture of the nasal bone. PLAN: 1. Admit the patient to IMCU. 2. Monitor blood pressure, may need further blood products versus upgrade to CCU. 3. If does not remain stable blood pressure with a MAP over 65, we will place central venous access for CVP monitoring, consideration of an arterial line for invasive monitoring of his cardiac output. 4. Continue to volume resuscitate. 5. I have requested a Farrell to monitor urine output closely. 6. May very well need Lasix if his blood pressure can handle it with the volume of fluid that he is receiving. 7. Serial H and H's. 8. Replace electrolytes as needed. 9. Pain control as needed. 10. I initially placed the patient in a C-collar as he did not come in a C- collar. I have since removed this, this patient has no radiographic evidence of cervical spine injury and no neck pain. 11. We will consult Cardiology in the morning. 12. EKG has been obtained. 13. We will hold any antiplatelets and anticoagulation at this time. 14. We will obtain a fibrinogen level. 15. The patient was seen by Dr. Antonio, this plan can be updated as needed. 16. Access, peripheral IV. 17. Full code discussed with the patient the patient's family at the bedside. 18. Diet is n.p.o. until bleeding is controlled and will be a regular diet. 19. Activity is bed rest right now. Once stable, will be up with assistance only. 20. Prophylaxis will be renally dosed famotidine and SCDs. 21. Disposition is [facility] for now. I have evaluated the patient multiple times throughout his ER visit coordinated with the emergency department staff, Dr. Antonio, the trauma attending as well as the patient and the patient's family and the bedside nurses. Total critical care time can be billed by Dr. Antonio with an additional 25 minutes of critical care time where I was immediately available managing this hemodynamically unstable patient, not including separate billable procedures. For procedures, please see separate documentation. This plan can be updated as needed. Job ID: [id number] MTDD
[2020-04-05 05:56] LABS: Anion Gap 14 mmol/L (10-20); BUN (Urea Nitrogen) 62 mg/dL (8.4-25.7); CK (CPK) 94 U/L (30-200); Calc. Creatinine Clearance 0 mL/min (70-130); Calcium 8.2 mg/dL (7.8-10.44); Carbon Dioxide 26 mmol/L (23-31); Chloride 101 mmol/L (98-107); Glucose 114 mg/dL (83-110); Magnesium 2.4 mg/dL (1.6-2.6); Phosphorus 3.7 mg/dL (2.3-4.7); Potassium 3.4 mmol/L (3.5-5.1); Sodium 138 mmol/L (136-145)
[2020-04-05 05:59] LABS: Troponin I 0.147 ng/mL (< 0.028)
[2020-04-05 06:02] LABS: #Monocytes 0.6 thou/uL (0.11-0.59); #Neutrophils 8.8 thou/uL (1.40-6.50); %Basophils 0.2 % (0.0-1.0); %Eosinophils 0.2 % (0.0-10.0); %Lymphocytes 9.7 % (21.0-51.0); %Monocytes 5.5 % (0.0-10.0); %Neutrophils 84.4 % (42.0-75.0); Hemoglobin 10.7 g/dL (14.0-18.0); Mean Corpuscular HGB CONC 33.4 g/dL (32.0-36.0); Mean Corpuscular Hemoglobin 30.7 pg (27.0-31.0); Mean Platelet Volume 9.1 fL (7.4-10.4); Platelet Count 164 thou/uL (130-400); RBC Distribution Width 14.9 % (11.5-14.5); Red Blood Cell (RBC) Count 3.48 mill/uL (4.70-6.10); White Blood Cell (WBC) Count 10.4 thou/uL (4.8-10.8)
[2020-04-05] MEDS ORDERED: Potassium Chloride 20 MEQ TAB PO SCH (06:30)
[2020-04-05 06:39] VITALS: BMI 34.8
[2020-04-05] MEDS: Ampicillin/Sulbactam 3 GM in Sodium Chloride 0.9% 100 ML IVPB SCH ×3 (06:40→18:31)
[2020-04-05] MEDS: Famotidine 20 MG TAB PO SCH (08:37)
--- NOTE | 2020-04-05 10:53 | CON ---
DATE OF CONSULTATION: REASON FOR CONSULTATION: Facial fractures. HISTORY OF PRESENT ILLNESS: This is an 80-year-old male, status post fall out of bed with bilateral nasal bone fractures and multiple facial lacerations. Facial lacerations were repaired by Dr. Aquino. PAST MEDICAL HISTORY: Significant for coronary artery disease with heart failure, status post stenting MEDICATIONS: The patient is on Eliquis, but has not been on for 2 weeks. PHYSICAL EXAMINATION: The patient is awake, alert, oriented x3, in no acute distress. His vital signs are stable. He is afebrile. He is very pleasant, sitting up in bed. Eating breakfast. He does have a dysconjugate gaze, which appears to be his baseline. Pupils are equal, round, and reactive to light and accommodation. His extraocular movements are intact. His visual acuity is intact. The patient has a right upper lip laceration, which has been closed. He has a small laceration in the midline philtrum area of his upper lip, which is very superficial and hemostatic. The patient has no septal hematoma. His nares patent bilaterally. He is currently hemostatic with no blood coming out of his nose. There is dry crusted blood in his nares bilaterally. CT scan of the face shows air-fluid level in the maxillary sinus, nondisplaced nasal bone fractures. ASSESSMENT: Status post fall, nondisplaced nasal bone fractures, facial lacerations. PLAN: No operative treatment is needed from the Oral Surgery standpoint. The patient's facial lacerations have already closed. Please call if any questions. Job ID: [id number]
--- NOTE | 2020-04-05 13:29 | PRG ---
DATE OF SERVICE: 04/05/2020 SUBJECTIVE: Mr. Jacques is an 80-year-old man with history of chronic congestive heart failure, status post myocardial infarction, who is on anti-platelet therapy. The patient apparently fell from bed, suffering multiple facial fractures and significant hemorrhagic shock, which required large volume resuscitation with blood and blood products. This morning, the patient is awake and alert. The nasal trumpet was inadvertently removed by the patient. No active bleeding was noted. He moves all extremities and follows commands with a [place] Coma Scale of 15. Urinary output is adequate for this patient's age and weight. OBJECTIVE: VITAL SIGNS: His vital signs currently include blood pressure 115/82, pulse 97, respiratory rate is 16, maximum temperature since admission is 97.7 degrees Fahrenheit, oxygen saturation is 100% on 2 L by nasal cannula oxygen. HEENT: Reveals stable scalp laceration. The patient has decreasing facial swelling. No ongoing epistaxis. Pupils equal, round, reactive to light and accommodation. HEART: Reveals irregular rate and rhythm, albeit rate controlled. LUNGS: Clear to auscultation bilaterally. Breathing, regular and nonlabored. ABDOMEN: Soft and obese. He has a large ventral hernia which is reducible. NEUROLOGIC: Reveals no focal deficits present. LABORATORY FINDINGS: Today include a CBC with 10,400 white blood cells, hemoglobin and hematocrit 10.7 and 32.0 respectively. Platelet count is 164,000. Metabolic profile; sodium 138, potassium 3.4, chloride is 101, bicarb is 26, BUN is 62, creatinine is 1.96, glucose is 114, magnesium is 2.4, and phosphorus is 3.7. Troponin I which was 0.076 on admission, is now 0.147 on recheck. The patient's baseline creatinine appears to be about 1.5. IMPRESSION: 1. Status post fall. 2. Multiple facial fractures, no ongoing bleeding. 3. Acute blood loss anemia, stable. 4. Acute kidney injury. 5. Acute hypokalemia. PLAN: 1. Correct abnormal electrolytes. 2. There is no clinical indication for blood transfusion at this time. We will continue to monitor the patient for hemostasis. 3. Await recommendations from hot bread baker with regard to the facial fractures. 4. The patient is hemodynamically stable for transfer to general surgical floor. 5. He has chronic atrial fibrillation, which is rate controlled at this point. We will continue to withhold anti-platelet therapy until adequate hemostasis has been achieved. Job ID: [id number]
--- NOTE | 2020-04-05 14:12 | CON ---
DATE OF CONSULTATION: REASON FOR CONSULTATION: Recent CA and fall, requiring blood transfusion. HISTORY OF PRESENT ILLNESS: Mr. Jacques is a pleasant 80-year-old gentleman who I recently saw and evaluated in 01/2020. At that time, he presented with acute myocardial infarction. He underwent successful stent placement with a 2.5 x 32 mm Synergy stent to the right coronary artery. His hospital course was fairly unremarkable. He recently fell out of bed. He fell on his face and had significant laceration. He required 5 units of packed red blood cells due to being on aspirin and Plavix. He was given platelets for reversal. He had also been on anticoagulation therapy, which has been discontinued several weeks ago. He currently has no significant signs of bleeding. Hemoglobin appears stable. PAST MEDICAL HISTORY: 1. CAD. 2. Status post CA. 3. Cardiomyopathy. HOME MEDICATIONS: Include: 1. Losartan. 2. Isosorbide. 3. Lasix. 4. Plavix. 5. Coreg. 6. Atorvastatin. 7. Aspirin. ALLERGIES: NONE. SOCIAL HISTORY: Currently . He is retired. No current tobacco or alcohol use. REVIEW OF SYSTEMS: A 10-point review of systems is reviewed and as above, otherwise negative. PHYSICAL EXAMINATION: GENERAL: Patient is a pleasant gentleman who is in no acute distress. The patient appears their stated age. VITAL SIGNS: Blood pressure 110/74, pulse 94, temperature afebrile. NEUROLOGIC: The patient is alert and oriented x3 with no focal neurologic deficits. HEENT: Sclerae without icterus. Mouth has moist mucous membranes with normal pallor. Significant lacerations and bruising. NECK: No JVD. Carotid upstroke brisk. No bruits bilaterally. LUNGS: Clear to auscultation with unlabored respirations. BACK: No scoliosis or kyphosis. CARDIAC: Regular rate and rhythm with normal S1 and S2. No S3 or S4 noted. No significant rubs, murmurs, thrills, or gallops noted throughout the precordium. PMI is not displaced. There is no parasternal heave. ABDOMEN: Soft, nontender, nondistended. No peritoneal signs present. No hepatosplenomegaly. No abnormal striae. EXTREMITIES: 2+ femoral and 2+ dorsalis pedis pulses. No cyanosis, clubbing, or edema. SKIN: No gross abnormalities. PERTINENT LABORATORY DATA: Hemoglobin 10.7, hematocrit 32. IMPRESSION: 1. Significant facial lacerations with bleed. 2. Recent myocardial infarction, on aspirin and Plavix. 3. Status post drug-coated stent. RECOMMENDATIONS: 1. Certainly, it seems reasonable to stop the aspirin and Plavix initially due to significant hemorrhage. 2. Now that the bleeding has stopped, I would like to discuss further with oral surgery on restarting aspirin and/or Plavix. He certainly is at risk of subacute thrombosis off anti-platelet therapy, but I understand the risks of recurrent bleeding. Otherwise, his CV status appears stable. Job ID: [id number]
[2020-04-05] MEDS ORDERED: Aspirin Chewable 81 MG TAB PO SCH (20:15)
[2020-04-06] MEDS: Ampicillin/Sulbactam 3 GM in Sodium Chloride 0.9% 100 ML IVPB SCH ×2 (00:20→05:25)
[2020-04-06 04:08] LABS: #Eosinphils 0.1 thou/uL (0.0-0.7); #Lymphocytes 2.5 thou/uL (1.20-3.40); #Monocytes 0.7 thou/uL (0.11-0.59); #Neutrophils 7.8 thou/uL (1.40-6.50); %Eosinophils 0.7 % (0.0-10.0); %Lymphocytes 22.5 % (21.0-51.0); %Monocytes 6.4 % (0.0-10.0); %Neutrophils 70.4 % (42.0-75.0); Hemoglobin 9.1 g/dL (14.0-18.0); Mean Corpuscular HGB CONC 34.4 g/dL (32.0-36.0); Mean Corpuscular Hemoglobin 31.9 pg (27.0-31.0); Mean Corpuscular Volume 92.6 fL (78.0-98.0); Mean Platelet Volume 9.1 fL (7.4-10.4); Platelet Count 142 thou/uL (130-400); RBC Distribution Width 15.3 % (11.5-14.5); Red Blood Cell (RBC) Count 2.86 mill/uL (4.70-6.10); White Blood Cell (WBC) Count 11.1 thou/uL (4.8-10.8)
[2020-04-06 04:50] LABS: Anion Gap 14 mmol/L (10-20); BUN (Urea Nitrogen) 58 mg/dL (8.4-25.7); Calc. Creatinine Clearance 50 mL/min (70-130); Calcium 8.1 mg/dL (7.8-10.44); Carbon Dioxide 27 mmol/L (23-31); Chloride 98 mmol/L (98-107); Glucose 140 mg/dL (83-110); Magnesium 2.2 mg/dL (1.6-2.6); Phosphorus 3.3 mg/dL (2.3-4.7); Potassium 3.1 mmol/L (3.5-5.1); Sodium 136 mmol/L (136-145)
[2020-04-06] MEDS: Acetaminophen 325 MG TAB PO SCH ×3 (05:23→18:04)
[2020-04-06] MEDS: traMADol HCl 50 MG TAB PO SCH ×3 (05:24→18:04)
[2020-04-06] MEDS: Famotidine 20 MG TAB PO SCH (08:58)
[2020-04-06] MEDS: Aspirin Chewable 81 MG TAB PO SCH (08:58)
--- NOTE | 2020-04-06 10:42 | PRG ---
DATE OF SERVICE: 04/06/2020 SUBJECTIVE: The patient is currently on the critical care unit. He is actually being held for bed availability to the surgical floor, which he had orders placed yesterday. He had no events overnight. This morning, he was actually working with Physical and Occupational Therapy, ambulating in the hallway. He still requests that he will be discharged home. We are going to have a conversation with Case Management and his family regarding the safety of that it is believed that he would be best served with at least a short stay with inpatient rehab, but again we will discuss it with his family and move from there. The patient is tolerating a diet. His pain is controlled. Again, he is ambulating without difficulty with therapy. PHYSICAL EXAMINATION: VITAL SIGNS: Temperature is 97.7, heart rate 94, blood pressure 132/92, respirations 18, oxygen saturation 100% on room air. GENERAL: The patient is awake, alert, conversant. [place] Coma Scale is 15. He is ambulating with minimal assistance. LUNGS: His respirations are nonlabored. His breath sounds scant, rhonchi bilaterally consistent with his COPD. HEART: Regular rate and rhythm. ABDOMEN: Soft, nondistended. EXTREMITIES: Neurovascularly intact x4. LABORATORY FINDINGS: White blood cell count 11.1, hemoglobin 9.1, hematocrit 26.5, platelets 142. Sodium 136, potassium 3.1, chloride 98, CO2 27, BUN 58, creatinine 1.94, glucose 140, magnesium 2.2, phosphorus 3.3. There are no radiographs reviewed this morning. ASSESSMENT AND PLAN: 1. Status post ground level fall. 2. Facial fractures, treated nonoperatively. 3. Acute blood loss anemia, stable. 4. Acute on chronic kidney injury. 5. Acute hypokalemia. PLAN: Plan will be to replace his potassium this morning. Continue encouraging physical and occupational therapy and await placement decision by family. We will continue to await bed availability for the surgical floor also. The patient was evaluated this morning with Dr. Antonio during rounds. Job ID: [id number]
[2020-04-06] MEDS: Cephalexin 250 MG CAP PO SCH ×3 (13:39→18:04)
[2020-04-07] MEDS: Cephalexin 250 MG CAP PO SCH ×5 (01:11→23:29)
[2020-04-07] MEDS: traMADol HCl 50 MG TAB PO SCH ×5 (01:12→23:30)
[2020-04-07] MEDS: Acetaminophen 325 MG TAB PO SCH ×5 (01:12→23:29)
--- NOTE | 2020-04-07 07:20 | PRG ---
DATE OF SERVICE: 04/07/2020 SUBJECTIVE: Mr. Jacques is doing well. No current complaints. No recurrent bleeding. OBJECTIVE: VITAL SIGNS: 111/64, pulse 87, temperature 97.5. LUNGS: Clear to auscultation. HEART: Regular rate and rhythm. ABDOMEN: Soft, nontender, nondistended. EXTREMITIES: No edema. PERTINENT LABORATORY DATA: Hemoglobin 9.1. IMPRESSION: 1. Facial laceration. 2. Coronary artery disease. 3. Status post stent placement. RECOMMENDATIONS: The patient is currently on aspirin, I will continue. I will add Plavix prior to discharge. His hemoglobin has dropped from 10.7 to 9.1. May need to seek continued stabilization prior to adding Plavix. If Trauma is comfortable based on the above and is ready for discharge, would be okay from my standpoint to add Plavix prior to discharge. The risk to benefit ratio is in his favor in order to restart Plavix based on his previous stent placement. Job ID: [id number]
[2020-04-07] MEDS: Aspirin Chewable 81 MG TAB PO SCH (08:16)
[2020-04-07] MEDS: Famotidine 20 MG TAB PO SCH (08:16)
[2020-04-07] MEDS ORDERED: Clopidogrel Bisulfate 75 MG TAB PO SCH (09:15)
[2020-04-07] MEDS: Senokot S 8.6-50 MG TAB PO SCH ×2 (10:04→20:15)
[2020-04-07] MEDS: Ascorbic Acid 500 mg Chewable Tablet PO SCH ×2 (10:05→20:14)
[2020-04-07] MEDS: Polyethylene Glycol 3350 17 GM Packet PO SCH (10:05)
[2020-04-07] MEDS: Ferrous Sulfate 325 MG TAB PO SCH ×2 (10:05→20:15)
[2020-04-07 14:44] LABS: Hemoglobin 9.6 g/dL (14.0-18.0); Platelet Count 149 thou/uL (130-400)
--- NOTE | 2020-04-07 22:33 | PRG ---
DATE OF SERVICE: 04/07/2020 SUBJECTIVE: The patient is currently on the telemetry floor. He is status post ground level fall on aspirin and Plavix resulting in acute blood loss anemia. He also sustained facial fractures that are being treated nonoperatively. His lacerations have been repaired in the emergency department. He is continued to maintain his hemoglobin and hematocrit. He resumed his aspirin and today, we are resuming his Plavix. Repeat H and H in the afternoon showed stable hemoglobin and hematocrit. The patient today was open to discuss placement in the [place] area. We will have Case Management work on this. PHYSICAL EXAMINATION: VITAL SIGNS: Temperature is 97.9, heart rate 99, blood pressure 147/91, respirations 18, and oxygen saturation 99% on room air. GENERAL: The patient is resting comfortably in bed. He is awake, conversant, appropriate. His [place] Coma Scale is 15. HEENT: Wounds are clean, dry, and intact. The patient has resolving contusions. LUNGS: Clear to auscultation bilaterally. HEART: Regular rate and rhythm. ABDOMEN: Soft, flat, and nontender with active bowel sounds. EXTREMITIES: Neurovascularly intact x4. LABORATORY DATA: Hemoglobin 9.1 and 9.6, hematocrit 26.5 and 30. RADIOGRAPHIC DATA: There are no radiographs to review this morning. ASSESSMENT AND PLAN: 1. Status post ground level fall on aspirin and Plavix. 2. Facial fractures, treated nonoperatively. 3. Facial laceration, repaired in the emergency department. 4. Acute blood loss anemia, stable. 5. Acute on chronic kidney injury, stable. 6. History of coronary artery disease and status post stent placement. Plan will be to continue supportive care. Encourage physical and occupational therapy and await placement decision. Again, the patient will resume his aspirin and Plavix as his hemoglobin and hematocrit have remained stable, and Cardiology believes that he needs to resume as soon as possible. We are in agreement. Job ID: [id number]
[2020-04-08 03:00] LABS: #Eosinphils 0.1 thou/uL (0.0-0.7); #Lymphocytes 2.4 thou/uL (1.20-3.40); #Monocytes 0.6 thou/uL (0.11-0.59); #Neutrophils 6.7 thou/uL (1.40-6.50); %Basophils 0.1 % (0.0-1.0); %Eosinophils 0.7 % (0.0-10.0); %Lymphocytes 24.5 % (21.0-51.0); %Monocytes 6.5 % (0.0-10.0); %Neutrophils 68.2 % (42.0-75.0); Hemoglobin 9.6 g/dL (14.0-18.0); Mean Corpuscular HGB CONC 32.5 g/dL (32.0-36.0); Mean Corpuscular Hemoglobin 30.5 pg (27.0-31.0); Mean Corpuscular Volume 93.8 fL (78.0-98.0); Mean Platelet Volume 9.2 fL (7.4-10.4); Platelet Count 152 thou/uL (130-400); RBC Distribution Width 15.5 % (11.5-14.5); Red Blood Cell (RBC) Count 3.16 mill/uL (4.70-6.10); White Blood Cell (WBC) Count 9.8 thou/uL (4.8-10.8)
[2020-04-08] MEDS: RisperDAL M-TAB 1 MG TAB SL SCH ×2 (03:08→03:09)
[2020-04-08 03:35] LABS: Anion Gap 17 mmol/L (10-20); BUN (Urea Nitrogen) 59 mg/dL (8.4-25.7); Calc. Creatinine Clearance 43 mL/min (70-130); Calcium 8.8 mg/dL (7.8-10.44); Carbon Dioxide 27 mmol/L (23-31); Chloride 97 mmol/L (98-107); Glucose 132 mg/dL (83-110); Magnesium 2.4 mg/dL (1.6-2.6); Potassium 3.8 mmol/L (3.5-5.1); Sodium 137 mmol/L (136-145)
[2020-04-08] MEDS: Acetaminophen 325 MG TAB PO SCH ×3 (05:42→17:15)
[2020-04-08] MEDS ORDERED: Digoxin 0.5 MG/2 ML AMP SLOW IVP SCH (07:00)
[2020-04-08] MEDS ORDERED: RisperDAL M-TAB 1 MG TAB SL SCH ×2 (08:15→09:00)
[2020-04-08] MEDS: Losartan 25 MG TAB PO SCH (09:51)
[2020-04-08] MEDS: Aspirin Chewable 81 MG TAB PO SCH (09:51)
[2020-04-08] MEDS: Clopidogrel Bisulfate 75 MG TAB PO SCH (09:51)
[2020-04-08] MEDS: Carvedilol 6.25 MG TAB PO SCH ×2 (09:51→17:16)
[2020-04-08] MEDS: Ascorbic Acid 500 mg Chewable Tablet PO SCH ×2 (09:55→21:32)
[2020-04-08] MEDS: Ferrous Sulfate 325 MG TAB PO SCH ×2 (09:55→21:32)
[2020-04-08] MEDS: Senokot S 8.6-50 MG TAB PO SCH ×2 (09:56→21:32)
[2020-04-08] MEDS: Polyethylene Glycol 3350 17 GM Packet PO SCH (09:56)
[2020-04-08] MEDS: Furosemide 40 MG TAB PO SCH (09:56)
--- NOTE | 2020-04-08 21:57 | PRG ---
DATE OF SERVICE: 04/08/2020 SUBJECTIVE: The patient is currently on the telemetry floor. He is status post ground level fall, on aspirin and Plavix, resulting in acute blood loss anemia from facial lacerations and facial fractures. He has been stable and has been able to resume aspirin and Plavix for his cardiac stent. Last night, the patient started having some agitation. Upon investigation of his medication, it was noted that he was on scheduled tramadol for the last several days and this can invoke agitation and sometimes hallucinations and almost encephalopathic type reaction. We have discontinued this. Unfortunately, he required restraints to keep himself and the staff say which canceled his transfer today, we started him on Seroquel and hopes that this will calm him with the Ultram also being discontinued. The patient's atrial fibrillation became atrial fibrillation with RVR this morning, it appeared that it is most likely related to his agitation. He did have lab work drawn and his electrolytes and his H and H were all within normal limits. PHYSICAL EXAMINATION: VITAL SIGNS: Temperature is 98.1, heart rate 86, blood pressure 123/81, respirations 18, oxygen saturation is 96% on room air. GENERAL: The patient is asleep when I entered the room, but he did awaken to me. He told me he did like his hands being tied, I explained that was for his safety and ask if he would be willing to take his medicines this morning, which he agreed to and his nurse came in and was able to give him the majority of his morning medications. HEENT: Continues to show resolving ecchymosis. LUNGS: Clear to auscultation bilaterally. HEART: Irregularly irregular consistent with his atrial fibrillation. Of note, it is more pronounced today this irregularity. ABDOMEN: Soft, nontender with active bowel sounds. EXTREMITIES: Neurovascularly intact x4. LABORATORY FINDINGS: White blood cell count 9.8, hemoglobin 9.6, hematocrit 29.6, platelets 152. Sodium 137, potassium 3.8, chloride 97, CO2 of 27, BUN 59, creatinine 2.22, glucose 132, magnesium 2.4, phosphorus 5.0. There are no radiographs reviewed this morning. ASSESSMENT: 1. Status post fall on aspirin and Plavix. 2. Multiple facial fractures, treated nonoperatively. 3. Facial laceration, repaired in the emergency department. 4. Acute blood loss anemia, stable. 5. Acute on chronic kidney injury, stable. 6. History of coronary artery disease and stent placement. PLAN: Plan will be to continue supportive care. Encourage physical and occupational therapy. As previously stated, we discontinued his Ultram. We have added Seroquel and the patient did get one dose of Risperdal. We will encourage physical and occupational therapy and await placement. Job ID: [id number]
[2020-04-09] MEDS: Acetaminophen 325 MG TAB PO SCH ×4 (00:36→17:17)
[2020-04-09] MEDS: Clopidogrel Bisulfate 75 MG TAB PO SCH (08:44)
[2020-04-09] MEDS: Furosemide 40 MG TAB PO SCH (08:44)
[2020-04-09] MEDS: Aspirin Chewable 81 MG TAB PO SCH (08:44)
[2020-04-09] MEDS: Senokot S 8.6-50 MG TAB PO SCH ×2 (08:45→21:05)
[2020-04-09] MEDS: Ferrous Sulfate 325 MG TAB PO SCH ×2 (08:45→21:05)
[2020-04-09] MEDS: Losartan 25 MG TAB PO SCH (08:45)
[2020-04-09] MEDS: Ascorbic Acid 500 mg Chewable Tablet PO SCH ×2 (08:45→21:05)
[2020-04-09] MEDS: Carvedilol 6.25 MG TAB PO SCH ×2 (08:47→17:17)
[2020-04-09] MEDS: Polyethylene Glycol 3350 17 GM Packet PO SCH (08:50)
--- NOTE | 2020-04-09 20:39 | PRG ---
DATE OF SERVICE: 04/09/2020 SUBJECTIVE: The patient is hospital day 2 status post fall on aspirin and Plavix. The patient is currently on the telemetry floor. The night before last, the patient started having some agitation and required restraints that was most likely due to a scheduled Ultram. Since the Ultram was stopped, the patient has become more alert and he has been able to be out of his restraints. The patient also was started on Seroquel at night to help with his rest cycle, which appears to have also helped and the patient's bowel function has returned. This morning and throughout the day, the patient continues to progress forward. He has not required any restraints. He was able to work with physical and occupational therapy and we project that he should be able to be transferred to his senior care facility tomorrow. The patient's atrial fibrillation is rate controlled. He is tolerating a diet. OBJECTIVE: VITAL SIGNS: Temperature is 97.7, heart rate 77, blood pressure 137/77, respirations 16, and oxygen saturation is 96% on room air. GENERAL: The patient is resting comfortably in bed. He was watching TV when I entered the room. He responded to me. He has definitely improved from his yesterday, which also was improvement from the day before. He is interactive and appropriate. Follows commands and is eager to get home. HEENT: Unchanged. LUNGS: Clear to auscultation bilaterally. HEART: His heart rate is irregularly irregular consistent with his atrial fibrillation. ABDOMEN: Soft and nontender with active bowel sounds. EXTREMITIES: Neurovascularly intact x4. LABORATORY DATA: There are no labs or radiographs reviewed this morning. ASSESSMENT: 1. Status post ground level fall on aspirin and Plavix. 2. Multiple facial fractures, treated nonoperatively. 3. Facial laceration, repaired in the Emergency Department. 4. Acute blood loss anemia, stable. 5. Acute on chronic kidney injury, stable. 6. History of coronary artery disease with stent placement, aspirin and Plavix have been resumed. 7. Encephalopathy, improved. PLAN: Plan will be to continue supportive care, encourage physical and occupational therapy, and await placement timing. Job ID: [id number]
[2020-04-10] MEDS: Acetaminophen 325 MG TAB PO SCH ×3 (00:37→11:01)
[2020-04-10 04:37] LABS: #Eosinphils 0.1 thou/uL (0.0-0.7); #Lymphocytes 1.4 thou/uL (1.20-3.40); #Monocytes 0.5 thou/uL (0.11-0.59); #Neutrophils 6.2 thou/uL (1.40-6.50); %Basophils 0.2 % (0.0-1.0); %Eosinophils 1.6 % (0.0-10.0); %Lymphocytes 16.7 % (21.0-51.0); %Monocytes 5.7 % (0.0-10.0); %Neutrophils 75.8 % (42.0-75.0); Hemoglobin 9.1 g/dL (14.0-18.0); Mean Corpuscular HGB CONC 32.7 g/dL (32.0-36.0); Mean Corpuscular Hemoglobin 30.7 pg (27.0-31.0); Platelet Count 162 thou/uL (130-400); RBC Distribution Width 15.6 % (11.5-14.5); Red Blood Cell (RBC) Count 2.97 mill/uL (4.70-6.10); White Blood Cell (WBC) Count 8.2 thou/uL (4.8-10.8)
[2020-04-10 05:05] LABS: Anion Gap 18 mmol/L (10-20); BUN (Urea Nitrogen) 39 mg/dL (8.4-25.7); Calc. Creatinine Clearance 58 mL/min (70-130); Calcium 8.3 mg/dL (7.8-10.44); Carbon Dioxide 26 mmol/L (23-31); Chloride 103 mmol/L (98-107); Glucose 102 mg/dL (83-110); Magnesium 2.2 mg/dL (1.6-2.6); Phosphorus 2.8 mg/dL (2.3-4.7); Potassium 3.3 mmol/L (3.5-5.1); Sodium 144 mmol/L (136-145)
[2020-04-10] MEDS: Carvedilol 6.25 MG TAB PO SCH (08:29)
[2020-04-10] MEDS: Ascorbic Acid 500 mg Chewable Tablet PO SCH (08:29)
[2020-04-10] MEDS: Furosemide 40 MG TAB PO SCH (08:29)
[2020-04-10] MEDS: Clopidogrel Bisulfate 75 MG TAB PO SCH (08:29)
[2020-04-10] MEDS: Aspirin Chewable 81 MG TAB PO SCH (08:29)
[2020-04-10] MEDS: Senokot S 8.6-50 MG TAB PO SCH (08:30)
[2020-04-10] MEDS: Polyethylene Glycol 3350 17 GM Packet PO SCH (08:30)
[2020-04-10] MEDS: Ferrous Sulfate 325 MG TAB PO SCH (08:30)
[2020-04-10] MEDS: Losartan 25 MG TAB PO SCH (08:30)
[2020-04-10] MEDS ORDERED: Potassium Bicarbonate/Cit Ac 20 MEQ TAB PO SCH (09:15)
[2020-04-10 10:58] VITALS: BP 113/65; TEMP 97
--- NOTE | 2020-04-10 20:16 | DIS ---
DATE OF ADMISSION: 04/04/2020 DATE OF DISCHARGE: 04/10/2020 ADMISSION DIAGNOSES: 1. Status post ground level fall, on aspirin and Plavix. 2. Multiple facial fractures, treated nonoperatively. 3. Facial lacerations, repaired in the emergency department. 4. Acute blood loss anemia. 5. Acute on chronic anemia. 6. Acute on chronic kidney injury. 7. History of coronary artery disease with stent placement. 8. History of heart failure with reduced ejection fraction. 9. History of atrial fibrillation. CONSULTATIONS: 1. jet worker, Dr. Welsh. 2. Cardiology, Dr. Parish. SUMMARY: The patient is an 80-year-old man who reportedly had a ground level fall, in which he sustained facial fractures that are being treated nonoperatively. The patient also sustained lacerations to his lip and face and including a bloody nose, which due to his aspirin and Plavix, made him hypotensive and anemic requiring blood products. The patient will be admitted to the hospital. He will have his lacerations repair. Again, he was evaluated by jet worker, who is treating his fractures nonoperatively. The patient was evaluated by Cardiology and they requested that he resume aspirin and Plavix as soon as the patient was stable, which did happen. Unfortunately, the patient was on scheduled Ultram, which we believe made him somewhat encephalopathic, requiring restraints, which delayed his discharge. The patient's medications were stopped and the patient improved over the next 24 to 36 hours. He also required Seroquel to help with his sleep, which again improved his daily regimen. At the time of discharge, the patient was awake, conversant, and appropriate. He was cooperating with Physical Therapy. He had been out of restraints greater than 24 hours and was able to be discharged to [facility]. The patient will follow up with his thrill performer as directed. He will follow up with jet worker in a week and we recommended that he follow up with his primary care provider. The patient may follow up with the Trauma Clinic if needed. At the time of discharge, the patient's pain was controlled, he was tolerating a diet, and his Tree Coma Scale was 15. Job ID: [id number]
--- NOTE | 2020-04-14 03:13 | PQF ---
CLINICAL DOCUMENTATION CLARIFICATION FORM: Dear : Eduardo Wood DO Date / Time: 04/14/2020 Please exercise your independent, professional judgment in responding to the clarification form. Clinical indicators are provided on the bottom of this form for your review Please check appropriate box(es) to clarify if the following diagnosis has been ruled in our ruled out: [x ] Ruled in maxillary fracture [ ] Continue to treat [ ] Resolved [ ] Ruled out maxillary fracture [ ] Improving [ ] Cannot rule out diagnosis [ ] Other diagnosis (Please specify if any) [ ] Unable to determine In addition, please specify: Present on Admission (POA): [ x ] Yes [ ] No [ ] Unable to determine Physician Signature: Date/Time: For continuity of documentation, please document condition throughout progress notes and discharge summary. Thank You. To be completed by CDI/Coding staff for physician review: Present Clinical Indicators - Signs / Symptoms / Labs Results and Location in Medical Record [x] Left maxillary sinus suspicious for non displaced fractures Facial bone CT on 04/04 [x] Lateral all of the let maxillay sinus may represent a subtle non displaced fracture Facial bone CT on 04/04 [x] Acessory naxillary ostia present but there is some irregularity to the medial wall of the left maxillary sinus which could suggest a fracture in this region Facial bone CT on 04/04 [x] Left nasal fracture, possible maxillay sinus fracture H&P on 04/05 [x] Multiple facial fractures, treated non operatively Progress notes on 04/08 Present Risk Factors Results and Location in Medical Record [x] Level 1 trauma activation fall with hypotension H&P on 04/05 [ ] Present Treatments Results and Location in Medical Record [x] Await recommendation from oral & maxillofacial surgery with regard to the facial fractures Progress notes on 04/05 [ ] [ ] [ ] CDS/Pigment Making Supervisor Signature: AAS Phone #: Date/Time: 04/14/2020 This is a permanent part of the [facility] Record [facility]
--- NOTE | 2020-04-15 16:27 | EKG ---
Test Reason : Blood Pressure : / mmHG Vent. Rate : 105 BPM Atrial Rate : 056 BPM P-R Int : 000 ms QRS Dur : 118 ms QT Int : 400 ms P-R-T Axes : 000 041 215 degrees QTc Int : 528 ms Atrial fibrillation with rapid ventricular response with premature ventricular or aberrantly conducte d complexes Non-specific intra-ventricular conduction delay Marked ST abnormality, possible anterior subendocardial injury Abnormal ECG Confirmed by CRYSTAL Crowell, JOHNY ([id number]), purchase request editor DIOGO WICK ([id number]) on 04/15/2020 4:27:24 PM Referred By: Confirmed By:JOHNY ROJAS M.D.
--- NOTE | 2020-04-18 05:59 | PQF ---
CLINICAL DOCUMENTATION CLARIFICATION FORM: Dear : Eduardo Wood DO Date / Time: 04/18/2020 Please exercise your independent, professional judgment in responding to the clarification form. Clinical indicators are provided on the bottom of this form for your revie Please check appropriate box(es): to clarify the type of fracture Bone fracture: Site: Left Maxillary sinus Type of fracture: Check all that apply [ x] Open [ ] Closed [ ] Other diagnosis (Please specify if any) [ ] Unable to determine In addition, please specify: Present on Admission (POA): [x ] Yes [ ] No [ ] Unable to determine Physician Signature: Date/Time: For continuity of documentation, please document condition throughout progress notes and discharge summary. Thank You. To be completed by CDI/Coding staff for physician review: Present Clinical Indicators - Signs / Symptoms / Labs Results and Location in Medical Record [x] Left maxillary sinus suspicious for non displaced fractures Facial bone CT on 04/04 [x] Lateral all of the left maxillary sinus may represent a subtle non displaced fracture Facial bone CT on 04/04 [x] Acessory maxillary fracture ostia but there is some irregularity to the medial wall of the left maxillary sinus which could suggest a fracture in this region Facial bone CT on 04/04 [x] Left nasal fracture, possible maxillary sinus fracture H&P on 04/05 [x] Multiple facial fractures, treated non operatively Progress notes on 04/08 Present Risk Factors Results and Location in Medical Record [x] Level 1 trauma activation fall with hypotension H&P on 04/05 [x] Aged person 80 yrs H&P on 04/05 [ ] Pagets disease [ ] Cancer Present Treatments Results and Location in Medical Record [ x ] A wait recommendation from oral & maxillofacial surgery with regard to the facial fracture Progress notes on 04/05 [ ] Procedure for correction (open or closed reduction) [ ] Calcium replacement meds [ ] CDS/Roof Shingler Signature: AAS Phone #: Date/Time: 04/18/2020 This is a permanent part of the [facility] Record [facility]
--- NOTE | 2020-04-18 23:19 | PQF ---
CLINICAL DOCUMENTATION CLARIFICATION FORM: Dear : Ricky Antonio MD Date / Time: 04/18/2020 Please exercise your independent, professional judgment in responding to the clarification form. Clinical indicators are provided on the bottom of this form for your review Please check appropriate box(es): to clarify the depth and approaches Procedure: complex laceration of the face & Vermilion border Depth: [ ] Skin [ ] subcutaneous tissue & fascia [ ] Muscle Approach: [ ] Open [ ] Percutaneous [ ] External [ ] Other procedure: (Please specify if any) [ ] Unable to determine Physician Signature: Date/Time: For continuity of documentation, please document condition throughout progress notes and discharge summary. Thank You To be completed by CDI/Coding staff for physician review: Present Clinical Indicators - Signs / Symptoms / Labs Results and Location in Medical Record [x] Patient has a stellate type laceration that does cross the vermilion border & then is [id number] into the lip with a large deficit OP note on 04/04 [x] He also has a second laceration with active bleeding prior to TXA topically OP note on 04/04 [x] First suture was 5-0vicryl subcuticular to approximate the soft tissues of the lip, one suture was placed,& to approximate the vermilion border, OP note on 04/04 [x] Total of I believe 5 simple interrupted sutures across this laceration, 3 being on the external portion& 2 loosely covering the internal portion. OP note on 04/04 [x] Attention turned to the superior lacertion, did have a large skin defect, again thoroughly irrigated. This was closed with 5 simple interrupted 6-0 prolone sutures with good margins & good bleeding control. OP note on 04/04 Present Risk Factors Results and Location in Medical Record [x] Level 1 trauma activation with fall H&P on 04/05 [x] Aged person 80 yrs H&P on 04/05 Present Treatments Results and Location in Medical Record [x] Wound/complex laceration reparix2 of the face & vermilion border OP note on 04/04 [ ] [ ] [ ] CDS/Branch Office Administrator Signature: AAS Phone #: Date/Time: 04/18/2020 This is a permanent part of the Medical Record [facility]
== END 2020-04-10 14:30 | DRG 157 ==
LOC: ERS 20:01 → CCU 20:49 → 2NO 04-06 16:54
PROVIDERS: ADMIT Specialist; ATTEND Specialist
PROC: 0CQ0XZZ Repair Upper Lip, External Approach (ICD-10-PCS; principal; 2020-04-04)
PROC: 093K7ZZ Control Bleeding in Nasal Mucosa and Soft Tissue, Via Natural or Artificial Opening (ICD-10-PCS; 2020-04-04)
PROC: 0HQ1XZZ Repair Face Skin, External Approach (ICD-10-PCS; 2020-04-04)
PROC: 30233R1 Transfusion of Nonautologous Platelets into Peripheral Vein, Percutaneous Approach (ICD-10-PCS; 2020-04-04)
PROC: 30233N1 Transfusion of Nonautologous Red Blood Cells into Peripheral Vein, Percutaneous Approach (ICD-10-PCS; 2020-04-04)
DX: S02.40DB Maxillary fracture, left side, initial encounter for open fracture (principal); T79.4XXA Traumatic shock, initial encounter; G92 Toxic encephalopathy; S02.2XXB Fracture of nasal bones, initial encounter for open fracture; N17.9 Acute kidney failure, unspecified; I50.22 Chronic systolic (congestive) heart failure; D62 Acute posthemorrhagic anemia; I48.20 Chronic atrial fibrillation, unspecified; I42.9 Cardiomyopathy, unspecified; S01.511A Laceration without foreign body of lip, initial encounter; Z20.828 Contact with and (suspected) exposure to other viral communicable diseases; R04.0 Epistaxis; I25.10 Atherosclerotic heart disease of native coronary artery without angina pectoris; E87.6 Hypokalemia; D69.6 Thrombocytopenia, unspecified; N18.9 Chronic kidney disease, unspecified; I25.2 Old myocardial infarction; Z95.5 Presence of coronary angioplasty implant and graft; Z79.01 Long term (current) use of anticoagulants; Z79.899 Other long term (current) drug therapy; Z79.82 Long term (current) use of aspirin
CPT/HCPCS: 36415; 36416; 36430; 51702; 70450; 70486; 71045; 71250; 72125; 74177; 80048; 80053; 81003; 81015; 82550; 82553; 83605; 83735; 84100; 84484; 85014; 85018; 85025; 85049; 85384; 85610; 85730; 86850; 86900; 86901; 93005; 93306; 96365; J0295; J1160; J1720; J2001; J3475; J3480; J3490; J7050; P9016; P9035; U0002